=== PATIENT | female | born 1935 | race Caucasian/White ===

== ENCOUNTER 2017-05-05 16:23 | Emergency (ER) | payer MEDICARE, OTHER ==
[~2017-05-05 16:23] MED LIST: AMBI10TA; ASPI-516 CHEW; ASPI325T; ATOR40TA16 PO; CARD120T4; CLON1TAB PO; CLOP75; DILT60TA PO; DIOV80TA4; ERGO2000 PO; EZET10 PO; LOSA100T PO; NAPR500T2 PO; RANI150C PO; RANT150EF; SERT-132 PO; SERT50; VYTO10TA35; ZITHTAB PO
[2017-05-05 16:32] VITALS: BP 161/97; PULSE 70; RESP 18; TEMP 98.6; O2SAT 100
[2017-05-05 18:19] LABS: AUTOMATED NEUTROPHIL # 3.1 TH/MM3 (1.8-7.7); BASOPHIL # 0.1 TH/MM3 (0-0.2); BASOPHIL % 1.1 % (0.0-2.0); EOSINOPHIL # 0.4 TH/MM3 (0-0.4); EOSINOPHIL % 6.2 % (0.0-4.0); HEMATOCRIT 37.5 % (35.0-46.0); HEMOGLOBIN 12.6 GM/DL (11.6-15.3); LYMPH % 32.6 % (9.0-44.0); MEAN CELL VOLUME 92.9 FL (80.0-100.0); MEAN CORPUSCULAR HEMOGLOBIN 31.2 PG (27.0-34.0); MEAN CORPUSCULAR HGB CONC 33.6 % (32.0-36.0); MEAN PLATELET VOLUME 7.5 FL (7.0-11.0); MONO % 8.6 % (0.0-8.0); MONOCYTE # 0.5 TH/MM3 (0-0.9); NEUT % 51.5 % (16.0-70.0); PLATELET COUNT 263 TH/MM3 (150-450); RED BLOOD COUNT 4.04 MIL/MM3 (4.00-5.30)
[2017-05-05 18:29] LABS: PROTHROMBIN TIME - PATIENT 10.3 SEC (9.8-11.6)
[2017-05-05 18:36] LABS: ALBUMIN 4.1 GM/DL (3.4-5.0); ALT (GPT) 25 U/L (10-53); AST (GOT) 24 U/L (15-37); BICARBONATE 26.6 MEQ/L (21.0-32.0); BLOOD UREA NITROGEN 20 MG/DL (7-18); CALCIUM 9.1 MG/DL (8.5-10.1); CHLORIDE 104 MEQ/L (98-107); GLOMERULAR FILTRATION RATE 53 ML/MIN (>89); GLUCOSE,RANDOM 104 MG/DL (74-106); SODIUM (NA) 138 MEQ/L (136-145)
[2017-05-05 18:40] LABS: ALKALINE PHOSPHATASE 129 U/L (45-117); TOTAL BILIRUBIN ADULT 0.2 MG/DL (0.2-1.0); TOTAL PROTEIN 8.3 GM/DL (6.4-8.2); TROPONIN I LESS THAN 0.02 NG/ML (0.02-0.05)
--- NOTE | 2017-05-05 20:40 | PD ---
HPI Chief Complaint: Hypertension Time Seen by Provider: 16:32 Travel History International Travel<30 days: No Contact w/Intl Traveler<30days: No Traveled to known affect area: No History of Present Illness HPI 82-year-old female with history of hypertension, presents emergency department for evaluation of high blood pressure, despite taking her medication. She has had a mild headache with elevated blood pressure since Friday. Denies any focal deficits weakness. No nausea vomiting. She does not have a local PCP. No other symptoms to report. PFSH Past Medical History Anxiety: Yes Cardiac Catheterization: Yes (with stent) Cardiovascular Problems: Yes High Cholesterol: Yes Diminished Hearing: No Hypertension: Yes Past Surgical History Body Medical Devices: stent Cardiac Surgery: Yes (ANGIOPLASTY) Coronary Stent: Yes Social History Alcohol Use: Yes (occasionally, beer) Tobacco Use: No Substance Use: No Allergies-Medications (Allergen,Severity, Reaction): Coded Allergies: penicillin G (Unverified Allergy, Mild, RASH, 09/24/16) Penicillins (Verified Allergy, Unknown, 03/10/17) Reported Meds & Prescriptions Reported Meds & Active Scripts Active Zithromax Z-Denis (Azithromycin) 250 Mg Dspk 250 Mg PO DIRECTED 500 MG (2 tabs) day 1, then 1 tab days 2-5. Reported Ambien (Zolpidem Tartrate) 10 Mg Tab Zantac (Ranitidine HCl) 150 Mg Tab Aspirin 325 Mg Tab Vytorin 10/40 (Ezetimibe/Simvastatin) Tab Plavix (Clopidogrel Bisulfate) 75 Mg Tab Zoloft (Sertraline HCl) 50 Mg Tab Diovan (Valsartan) 80 Mg Tab Cardizem (Diltiazem HCl) 120 Mg Tab Losartan (Losartan Potassium) 100 Mg Tab 100 Mg PO DAILY Aspirin 81 Mg Chew 81 Mg CHEW DAILY Sertraline (Sertraline HCl) 50 Mg Tab 50 Mg PO DAILY Zetia (Ezetimibe) 10 Mg Tab 10 Mg PO DAILY Clonazepam 1 Mg Tab 1 Mg PO TID Vitamin D2 (Ergocalciferol) 2,000 Unit Tab 2,000 Units PO DAILY Naproxen 500 Mg Tab 500 Mg PO BID Ranitidine (Ranitidine HCl) 150 Mg Cap 150 Mg PO DAILY Atorvastatin (Atorvastatin Calcium) 40 Mg Tab 40 Mg PO HS Diltiazem (Diltiazem HCl) 60 Mg Tab 180 Mg PO DAILY Review of Systems Except as stated in HPI: all other systems reviewed are Neg Physical Exam Narrative Well-nourished elderly female patient. she appears nontoxic. She has no obvious focal deficits or weakness. She has even respirations. She has normal heart rate. She moves all extremities and speaks to me clearly. Data Data Last Documented VS Vital Signs Date Time Temp Pulse Resp B/P (MAP) Pulse Ox O2 Delivery O2 Flow Rate FiO2 05/05/17 16:32 98.6 70 18 161/97 (118) 100 Orders Orders Electrocardiogram (05/05/17 16:35) Ckmb (Isoenzyme) Profile (05/05/17 16:35) Complete Blood Count With Diff (05/05/17 16:35) Comprehensive Metabolic Panel (05/05/17 16:35) Prothrombin Time / Inr (Pt) (05/05/17 16:35) Act Partial Throm Time (Ptt) (05/05/17 16:35) Troponin I (05/05/17 16:35) Lipase (05/05/17 16:35) Labs Laboratory Tests Test 05/05/17 17:53 White Blood Count 6.0 TH/MM3 Red Blood Count 4.04 MIL/MM3 Hemoglobin 12.6 GM/DL Hematocrit 37.5 % Mean Corpuscular Volume 92.9 FL Mean Corpuscular Hemoglobin 31.2 PG Mean Corpuscular Hemoglobin Concent 33.6 % Red Cell Distribution Width 13.0 % Platelet Count 263 TH/MM3 Mean Platelet Volume 7.5 FL Neutrophils (%) (Auto) 51.5 % Lymphocytes (%) (Auto) 32.6 % Monocytes (%) (Auto) 8.6 % Eosinophils (%) (Auto) 6.2 % Basophils (%) (Auto) 1.1 % Neutrophils # (Auto) 3.1 TH/MM3 Lymphocytes # (Auto) 2.0 TH/MM3 Monocytes # (Auto) 0.5 TH/MM3 Eosinophils # (Auto) 0.4 TH/MM3 Basophils # (Auto) 0.1 TH/MM3 CBC Comment DIFF FINAL Differential Comment Prothrombin Time 10.3 SEC Prothromb Time International Ratio 1.0 RATIO Activated Partial Thromboplast Time 30.4 SEC Blood Urea Nitrogen 20 MG/DL Creatinine 1.00 MG/DL Random Glucose 104 MG/DL Total Protein 8.3 GM/DL Albumin 4.1 GM/DL Calcium Level 9.1 MG/DL Alkaline Phosphatase 129 U/L Aspartate Amino Transf (AST/SGOT) 24 U/L Alanine Aminotransferase (ALT/SGPT) 25 U/L Total Bilirubin 0.2 MG/DL Sodium Level 138 MEQ/L Potassium Level 3.9 MEQ/L Chloride Level 104 MEQ/L Carbon Dioxide Level 26.6 MEQ/L Anion Gap 7 MEQ/L Estimat Glomerular Filtration Rate 53 ML/MIN Total Creatine Kinase 75 U/L Troponin I LESS THAN 0.02 NG/ML Lipase 277 U/L [facility] Medical Decision Making Medical Screen Exam Complete: Yes Emergency Medical Condition: Yes Medical Record Reviewed: Yes Differential Diagnosis Hypertension versus hypertensive urgency versus electrolyte abnormality versus intracranial etiology Narrative Course 82-year-old female presents to emergency department for evaluation of elevated blood pressure. Patient's blood pressure is elevated here however it is not concerning at this time. She appears well. She has no focal deficits weakness here in triage. Workup is initiated. Prior to bed placement, patient chooses to leave. AMA: The risks of leaving against medical advice without further evaluation treatment were discussed with the patient. These risks include cardiac dysfunction, cardiac dysrhythmia, possible heart attack, possible stroke or . The patient indicated understanding of these risks and appeared to have the capacity to make this decision. Diagnosis Primary Impression: Hypertension Disposition: 07 AGAINST MEDICAL ADVICE Condition: Stable RamanVianey MANUEL May 05, 2017 20:40
--- NOTE | 2017-05-06 16:08 | EKG ---
Date Performed: 05/05/2017 Time Performed: 17:49:58 PTAGE: 82 years EKG: Sinus rhythm WITH FREQUENT VENTRICULAR PREMATURE COMPLEXES IN A BIGEMINAL PATTERN NONSPECIFIC ST & T-WAVE ABNORMA LITY ABNORMAL RHYTHM ECG PREVIOUS TRACING : 01/27/2006 20.21 Ventricular ectopy is new since prior tracing. DOCTOR: Jarvis Partida Interpretating Date/Time 05/06/2017 16:07:00
== END 2017-05-05 21:06 | disposition left against medical advice (07) ==
LOC: NED 16:23
DX: I10 Essential (primary) hypertension (principal); E78.00 Pure hypercholesterolemia, unspecified; R94.31 Abnormal electrocardiogram [ECG] [EKG]; Z79.02 Long term (current) use of antithrombotics/antiplatelets; Z79.899 Other long term (current) drug therapy
CPT/HCPCS: 80053; 82550; 83690; 84484; 85025; 85610; 85730; 93005; 99284